=== PATIENT | female | born 1990 | race African-American/Black ===

== ENCOUNTER → 2016-05-29 | Outpatient (CLI) | payer OTHER, BC ==
[2016-02-27 07:10] VITALS: BP 170/93
[~2016-05-29] MED LIST: HYDR-971 PO; PENI500T PO; TRIA15CR2 TP
== END | disposition home or self-care (01) ==
LOC: LAB 07:32
PROVIDERS: ATTEND Obstetrics & Gynecology
DX: Z32.00 Encounter for pregnancy test, result unknown (principal)
CPT/HCPCS: 36415; 84702

== ENCOUNTER 2016-10-28 14:53 | Emergency (ER) | payer OTHER, BC ==
[~2016-10-28] VITALS: Ht 167.6 cm; Wt 136.1 kg
--- NOTE | 2016-10-28 15:59 | PHYS DOC ---
Past Medical History Past Medical History: Other Additional Past Medical Histor: seasonal allergies - pollen Past Surgical History: Alcohol Use: None Drug Use: None Adult General Chief Complaint Chief Complaint: HEADACHE HPI HPI Patient is a 26 year old female presents emergency department stating that she has a headache that starts in her frontal sinuses completely around her head. She states the only other time that she's had a headache that this been similar to this is when she was . Patient states at the end of August she had taken the plan be and has not had a menstrual cycle since then. Patient denies any photophobia, nausea or vomiting. Patient continues to state that she has taken Tylenol ibuprofen, Sudafed and everything [id number] to help with her headache that has not helped at all. Patient states that she drove herself here to the emergency department. She states she does not have anybody that can come pick her up. Review of Systems Review of Systems Constitutional: Denies fever or chills [] Eyes: Denies change in visual acuity, redness, or eye pain [] HENT: Denies nasal congestion or sore throat [] Respiratory: Denies cough or shortness of breath [] Cardiovascular: No additional information not addressed in HPI [] GI: Denies abdominal pain, nausea, vomiting, bloody stools or diarrhea [] : Denies dysuria or hematuria [] Musculoskeletal: Denies back pain or joint pain [] Integument: Denies rash or skin lesions [] Neurologic: headache, denies focal weakness or sensory changes [] Endocrine: Denies polyuria or polydipsia [] Current Medications Current Medications Current Medications Medications (Trade) Dose Ordered Sig/[facility] Start Time Stop Time Status Last Admin Dose Admin Acetaminophen (Tylenol) 1,000 mg 1X ONCE 10/28/16 16:15 10/28/16 16:55 DC Diphenhydramine HCl (Benadryl) 25 mg 1X ONCE 10/28/16 17:30 10/28/16 17:31 10/28/16 17:08 25 MG Ibuprofen (Motrin) 800 mg 1X ONCE 10/28/16 17:30 10/28/16 17:31 10/28/16 17:08 800 MG Metoclopramide HCl (Reglan) 10 mg 1X ONCE 10/28/16 17:30 10/28/16 17:31 10/28/16 17:07 10 MG Pseudoephedrine HCl (Sudafed) 30 mg 1X ONCE 10/28/16 16:15 10/28/16 16:55 DC Allergies Allergies Allergies Coded Allergies Type Severity Reaction Last Updated Verified No Known Drug Allergies 05/07/13 No Physical Exam Physical Exam Constitutional: Well developed, well nourished, no acute distress, non-toxic appearance. [] HENT: Normocephalic, atraumatic, bilateral external ears normal, oropharynx moist, no oral exudates, nose normal. Bilateral tympanic membranes appear to be normal. Patient with frontal sinus tenderness. No maxillary sinus tenderness noted. Bilateral nares appear to be inflamed and red. Patient with no nasal drainage noted patient throat appears to be without redness, exudate or erythema noted. Eyes: PERRLA, EOMI, conjunctiva normal, no discharge. [] Neck: Normal range of motion, no tenderness, supple, no stridor. [] Cardiovascular:Heart rate regular rhythm, no murmur [] Lungs & Thorax: Bilateral breath sounds clear to auscultation [] Skin: Warm, dry, no erythema, no rash. [] Back: No tenderness Extremities: No tenderness, no cyanosis, no clubbing, ROM intact, no edema. [] Neurologic: Alert and oriented X 3, normal motor function, normal sensory function, no focal deficits noted. [] Psychologic: Affect normal, judgement normal, mood normal. [] Current Patient Data Vital Signs Vital Signs Date Time Temp Pulse Resp B/P (MAP) Pulse Ox O2 Delivery O2 Flow Rate FiO2 10/28/16 17:09 102 156/84 (108) 98 Room Air 10/28/16 15:10 97.8 20 97.8 Lab Values Laboratory Tests Test 10/28/16 15:20 POC Urine HCG, Qualitative Hcg negative (Negative) EKG EKG [] Radiology/Procedures Radiology/Procedures [facility] [address] [place] [address] IMAGING REPORT Signed PATIENT: MARIAM RAMOS ACCOUNT: [id number] : 1990 LOCATION: ER AGE: 26 SEX: F EXAM STATUS: REG ER ORD. PHYSICIAN: SHIRLEY BUI APRN REASON: frontal headache that wraps around her head. PROCEDURE: CT HEAD WO CONTRAST CT scan of the head without contrast 10/28/2016 Clinical history: Frontal headaches. Technique: Unenhanced, contiguous, 5 mm axial sections were obtained through the head. One or more of the following individualized dose reduction techniques were utilized for this study: 1. Automated exposure control. 2. Adjustment of the mA and/or kV according to patient size. 3. Use of iterative reconstruction technique. Findings: The ventricles and sulci are within normal limits in size and configuration. No area of abnormal attenuation is involving the brain parenchyma. No extra-axial fluid collection is seen. No skull fracture is noted. Impression: Negative study. DICTATED and SIGNED BY: ILDA TABOR MD DATE: 10/28/161657 CC: SHIRLEY BUI APRN; NO PCP; NON,STAFF ~ [] Course & Med Decision Making Course & Med Decision Making Pertinent Labs and Imaging studies reviewed. (See chart for details) Offered patient a Sudafed here in the emergency department to help with sinus pressure in which patient states I were retaken that and that has not helped with my pain or discomfort. Once again patient has driven herself here to the emergency department so the medication regimen is limited at this time. Patient refused Sudafed and Tylenol here in the emergency department. She has arranged for a ride to come and get her. She was provided with Benadryl and Reglan and Toradol by mouth. CT scans were negative per radiology. Patient will be discharged home in stable condition with you recommendation to use Sudafed and Mucinex DM [id number]. Recommended Tylenol or ibuprofen for pain and discomfort. Patient will be discharged home in stable condition signs and symptoms to return back to the emergency department as been provided. Patient agrees with discharge instructions treatment regimens and follow-up recommendations. [] Dragon Disclaimer Dragon Disclaimer This electronic medical record was generated, in whole or in part, using a voice recognition dictation system. Departure Departure Impression: Primary Impression: Sinus headache Disposition: 01 HOME, SELF-CARE Condition: STABLE Referrals: NO PCP (PCP) Patient Instructions: Sinus Headache, [id number] Additional Instructions: Activity as tolerated. Medication as prescribed: Sudafed, Mucinex DM. Take these medications as directed by reinsurance claims analyst. Drink plenty of fluids. Follow-up with her primary care physician in the next 7-10 days. Return back to emergency department sign symptoms of become worse. SHIRLEY BUI MANUFACTURER'S REPRESENTATIVE Oct 28, 2016 15:59
[2016-10-28] MEDS ORDERED: PSEUDOEPHEDRINE 30 MG TABLET. PO ONE (16:15)
[2016-10-28] MEDS ORDERED: ACETAMINOPHEN 500 MG TABLET PO ONE (16:15)
--- NOTE | 2016-10-28 17:02 | RAD ---
CT scan of the head without contrast 10/28/2016 Clinical history: Frontal headaches. Technique: Unenhanced, contiguous, 5 mm axial sections were obtained through the head. One or more of the following individualized dose reduction techniques were utilized for this study: 1. Automated exposure control. 2. Adjustment of the mA and/or kV according to patient size. 3. Use of iterative reconstruction technique. Findings: The ventricles and sulci are within normal limits in size and configuration. No area of abnormal attenuation is involving the brain parenchyma. No extra-axial fluid collection is seen. No skull fracture is noted. Impression: Negative study.
[2016-10-28 17:09] VITALS: BP 156/84
[2016-10-28] MEDS ORDERED: diphenhydrAMINE HCL 25 MG CAPSULE PO ONE (17:30)
[2016-10-28] MEDS ORDERED: IBUPROFEN 800 MG TABLET. PO ONE (17:30)
[2016-10-28] MEDS ORDERED: METOCLOPRAMIDE 10 MG TABLET. PO ONE (17:30)
== END 2016-10-28 17:27 | disposition home or self-care (01) ==
LOC: ER 14:53
DX: R51 Headache (principal)
CPT/HCPCS: 70450; 81025; 99284; J8597; Q0163

== ENCOUNTER 2016-12-10 07:26 | Emergency (ER) | payer BC, OTHER ==
[~2016-12-10] VITALS: Ht 167.6 cm; Wt 127.0 kg
[2016-12-10 07:40] VITALS: BP 164/92
[2016-12-10] MEDS ORDERED: AMOX1TAB61 PO (07:55)
[2016-12-10] MEDS ORDERED: TRAM50TA PO (07:55)
--- NOTE | 2016-12-10 07:55 | PHYS DOC ---
Past Medical History Past Medical History: Other Additional Past Medical Histor: seasonal allergies - pollen Past Surgical History: Alcohol Use: None Drug Use: None Adult General Chief Complaint Chief Complaint: HEADACHE HPI HPI Patient is a 26 year old female presents to the ED complaining of sinus headache 2 days. Patient states she has a history of similar headaches with same symptoms. Patient had a CT scan on last visit which was negative for any acute injury. States Tylenol relieves her headaches but they come back. Patient states that she had improvement with antibiotics last time. Denies worst headache of life, fever, nausea/vomiting, dizziness, weakness, headache, vision changes, chest pain or shortness of breath. Review of Systems Review of Systems Constitutional: Denies fever or chills [] Eyes: Denies change in visual acuity, redness, or eye pain [] HENT: Complains of nasal congestion. Denies sore throat [] Respiratory: Denies cough or shortness of breath [] Cardiovascular: No additional information not addressed in HPI [] GI: Denies abdominal pain, nausea, vomiting, bloody stools or diarrhea [] : Denies dysuria or hematuria [] Musculoskeletal: Denies back pain or joint pain [] Integument: Denies rash or skin lesions [] Neurologic: Complains of headache. Denies focal weakness or sensory changes [] Endocrine: Denies polyuria or polydipsia [] Allergies Allergies Allergies Coded Allergies Type Severity Reaction Last Updated Verified No Known Drug Allergies 12/10/16 No Physical Exam Physical Exam Constitutional: Well developed, well nourished, no acute distress, non-toxic appearance. [] HENT: MILD FRONTAL SINUS TENDERNESS. Normocephalic, atraumatic, bilateral external ears normal, oropharynx moist, no oral exudates, nose normal. [] Eyes: PERRLA, EOMI, conjunctiva normal, no discharge. [] Neck: Normal range of motion, no tenderness, supple, no stridor. [] Cardiovascular:Heart rate regular rhythm, no murmur [] Lungs & Thorax: Bilateral breath sounds clear to auscultation [] Abdomen: Bowel sounds normal, soft, no tenderness, no masses, no pulsatile masses. [] Skin: Warm, dry, no erythema, no rash. [] Back: No tenderness, no CVA tenderness. [] Extremities: No tenderness, no cyanosis, no clubbing, ROM intact, no edema. [] Neurologic: Alert and oriented X 3, normal motor function, normal sensory function, no focal deficits noted. [] Psychologic: Affect normal, judgement normal, mood normal. [] Current Patient Data Vital Signs Vital Signs Date Time Temp Pulse Resp B/P (MAP) Pulse Ox O2 Delivery O2 Flow Rate FiO2 12/10/16 07:40 98.0 102 20 99 Room Air 98.0 EKG EKG [] Radiology/Procedures Radiology/Procedures [] Impressions: Vitals rechecked. HR: 90. BP 158/94. Sat: 98%. Requesting antibiotics to improve sinus headache. Patient given augmentin and tramadol. Vitals stable, no acute distress. Negative CT on previous visit. States same symptoms as previous visit which got relief with antibiotics. Discussed follow-up with PCP this week. Discussed reasons to return to the ED. Patient understands and agrees with plan. Course & Med Decision Making Course & Med Decision Making Pertinent Labs and Imaging studies reviewed. (See chart for details) [] Dragon Disclaimer Dragon Disclaimer This electronic medical record was generated, in whole or in part, using a voice recognition dictation system. Departure Departure Impression: Primary Impression: Sinus headache Disposition: 01 HOME, SELF-CARE Condition: IMPROVED Referrals: NO PCP (PCP) Patient Instructions: Sinus Headache Scripts Tramadol Hcl (TRAMADOL HCL) 50 Mg Tablet 1 TAB PO PRN Q6HRS, #10 TAB Prov: JUAN WALLACE 12/10/16 Amoxicillin/Potassium Clav (AUGMENTIN 875-125 TABLET) 1 Each Tablet 1 TAB PO BID, #28 TAB Prov: JUAN WALLACE 12/10/16 JUAN WALLACE Dec 10, 2016 07:55
== END 2016-12-10 08:00 | disposition home or self-care (01) ==
LOC: ER 07:26
DX: R51 Headache (principal)
CPT/HCPCS: 99283

== ENCOUNTER 2018-03-01 07:30 | Emergency (ER) | payer OTHER ==
[~2018-03-01] VITALS: Ht 167.6 cm; Wt 136.1 kg
[~2018-03-01 07:30] MED LIST changes: +AMOX1TAB61 PO; +HYDR-3164 PO; -HYDR-971 PO; +TRAM50TA PO
[2018-03-01 07:38] VITALS: BP 175/84
[2018-03-01] MEDS: DEXAMETHASONE SOD PHOS 20 MG/5 ML VIAL. IM ONE (08:49)
--- NOTE | 2018-03-01 08:54 | PHYS DOC ---
Past Medical History Past Medical History: Other Additional Past Medical Histor: seasonal allergies - pollen Past Surgical History: Alcohol Use: None Drug Use: None Adult General Chief Complaint Chief Complaint: SORE THROAT HPI HPI Patient is a 27 year old [f__sex] who presents with [] Review of Systems Review of Systems Constitutional: Denies fever or chills [] Eyes: Denies change in visual acuity, redness, or eye pain [] HENT: Denies nasal congestion or sore throat [] Respiratory: Denies cough or shortness of breath [] Cardiovascular: No additional information not addressed in HPI [] GI: Denies abdominal pain, nausea, vomiting, bloody stools or diarrhea [] : Denies dysuria or hematuria [] Musculoskeletal: Denies back pain or joint pain [] Integument: Denies rash or skin lesions [] Neurologic: Denies headache, focal weakness or sensory changes [] Endocrine: Denies polyuria or polydipsia [] All other systems were reviewed and found to be within normal limits, except as documented in this note. Current Medications Current Medications Current Medications Medications (Trade) Dose Ordered Sig/[facility] Start Time Stop Time Status Last Admin Dose Admin Dexamethasone Sodium Phosphate (Decadron) 10 mg 1X ONCE 03/01/18 08:15 03/01/18 08:16 DC 03/01/18 08:49 10 MG Allergies Allergies Allergies Coded Allergies Type Severity Reaction Last Updated Verified No Known Drug Allergies 12/10/16 No Physical Exam Physical Exam Constitutional: Well developed, well nourished, no acute distress, non-toxic appearance. [] HENT: Normocephalic, atraumatic, bilateral external ears normal, oropharynx moist, no oral exudates, nose normal. [] Eyes: PERRLA, EOMI, conjunctiva normal, no discharge. [] Neck: Normal range of motion, no tenderness, supple, no stridor. [] Cardiovascular:Heart rate regular rhythm, no murmur [] Lungs & Thorax: Bilateral breath sounds clear to auscultation [] Abdomen: Bowel sounds normal, soft, no tenderness, no masses, no pulsatile masses. [] Skin: Warm, dry, no erythema, no rash. [] Back: No tenderness, no CVA tenderness. [] Extremities: No tenderness, no cyanosis, no clubbing, ROM intact, no edema. [] Neurologic: Alert and oriented X 3, normal motor function, normal sensory function, no focal deficits noted. [] Psychologic: Affect normal, judgement normal, mood normal. [] Current Patient Data Vital Signs Vital Signs Date Time Temp Pulse Resp B/P (MAP) Pulse Ox O2 Delivery O2 Flow Rate FiO2 03/01/18 07:38 97.0 90 20 175/84 (114) 100 Room Air 97.0 Lab Values Laboratory Tests Test 03/01/18 08:00 Group A Streptococcus Rapid Negative (NEGATIVE) EKG EKG [] Radiology/Procedures Radiology/Procedures [] Course & Med Decision Making Course & Med Decision Making Pertinent Labs and Imaging studies reviewed. (See chart for details) [] Dragon Disclaimer Dragon Disclaimer This electronic medical record was generated, in whole or in part, using a voice recognition dictation system. Departure Departure Impression: Primary Impression: Pharyngitis Disposition: HOME, SELF-CARE Condition: STABLE Referrals: NO PCP (PCP) Patient Instructions: Viral Pharyngitis Additional Instructions: Use over the counter Tylenol and/or Ibuprofen for pain. Problem Qualifiers Primary Impression: Pharyngitis Pharyngitis/tonsillitis etiology: unspecified etiology Qualified Codes: J02.9 - Acute pharyngitis, unspecified SRUTHI MANUEL DO Mar 01, 2018 08:54
== END 2018-03-01 08:58 | disposition home or self-care (01) ==
LOC: ER 07:30
DX: J02.9 Acute pharyngitis, unspecified (principal)
CPT/HCPCS: 87070; 87880; 96372; 99283; J1100

== ENCOUNTER 2019-04-19 08:29 | Emergency (ER) | payer OTHER ==
[~2019-04-19] VITALS: Ht 170.2 cm; Wt 159.0 kg
[2019-04-19 08:44] VITALS: BP 170/99
[2019-04-19] MEDS ORDERED: IBUPROFEN 400 MG TABLET. PO ONE (08:45)
--- NOTE | 2019-04-19 08:48 | PHYS DOC ---
Past Medical History Past Medical History: Other Additional Past Medical Histor: seasonal allergies - pollen Past Surgical History: Alcohol Use: None Drug Use: None Adult General Chief Complaint Chief Complaint: SORE THROAT HPI HPI Patient is a 28 year old nonsmoker female with history of seasonal allergy who presents with complaint of cough and sore throat. Patient complaining of nonproductive cough that started 1 month ago and became productive with greenish sputum. Patient also complaining of sore throat and hoarseness that started 1 month ago with improvement of hoarseness but states the hoarseness getting worse again. Patient denies fever and chills, shortness of breath, nausea and vomiting, diarrhea and constipation, urinary symptom, . Patient had contacts at work. Patient states she took [id number] NyQuil and DayQuil without improvement of her condition Review of Systems Review of Systems Constitutional: Denies fever or chills [] Eyes: Denies change in visual acuity, redness, or eye pain [] HENT: Denies nasal congestion, reports sore throat [] Respiratory: Reports cough, denies shortness of breath Cardiovascular: No additional information not addressed in HPI [] GI: Denies abdominal pain, nausea, vomiting, bloody stools or diarrhea [] : Denies dysuria or hematuria [] Musculoskeletal: Denies back pain or joint pain [] Integument: Denies rash or skin lesions [] Neurologic: Denies headache, focal weakness or sensory changes [] Endocrine: Denies polyuria or polydipsia [] All other systems were reviewed and found to be within normal limits, except as documented in this note. Current Medications Current Medications Current Medications Medications (Trade) Dose Ordered Sig/[facility] Start Time Stop Time Status Last Admin Dose Admin Ibuprofen (Motrin) 800 mg 1X ONCE 04/19/19 08:45 04/19/19 08:47 DC 04/19/19 08:45 800 MG Allergies Allergies Allergies Coded Allergies Type Severity Reaction Last Updated Verified No Known Drug Allergies 12/10/16 No Physical Exam Physical Exam Constitutional: Well developed, well nourished, mild distress, non-toxic appearance. [] HENT: Normocephalic, atraumatic, bilateral external ears normal, oropharynx moist, pharyngeal erythema, no oral exudates, nose normal. [] Eyes: PERRLA, EOMI, conjunctiva normal, no discharge. [] Neck: Normal range of motion, no tenderness, supple, no stridor. [] Cardiovascular:Heart rate regular rhythm, no murmur [] Lungs & Thorax: Bilateral breath sounds clear to auscultation [] Abdomen: Bowel sounds normal, soft, no tenderness, no masses, no pulsatile masses. [] Skin: Warm, dry, no erythema, no rash. [] Back: No tenderness, no CVA tenderness. [] Extremities: No tenderness, no cyanosis, no clubbing, ROM intact, no edema. [] Neurologic: Alert and oriented X 3, normal motor function, normal sensory function, no focal deficits noted. [] Psychologic: Affect normal, judgement normal, mood normal. [] Current Patient Data Vital Signs Vital Signs Date Time Temp Pulse Resp B/P (MAP) Pulse Ox O2 Delivery O2 Flow Rate FiO2 04/19/19 08:44 97.6 94 16 170/99 (122) 97 Room Air 97.6 EKG EKG [] Radiology/Procedures Radiology/Procedures [][facility] [address] [place], [place] [id number] IMAGING REPORT Signed PATIENT: MARIAM RAOMS ACCOUNT: [id number] : 1990 LOCATION: ER AGE: 28 SEX: F EXAM STATUS: REG ER ORD. PHYSICIAN: GATO MONTENEGRO MD REASON: cough for one month PROCEDURE: CHEST PA & LATERAL EXAM: Chest, 2 views. HISTORY: Cough. COMPARISON: 01/25/2015 FINDINGS: 2 views of the chest are obtained. There is no infiltrate, pleural effusion or pneumothorax. The heart is normal in size. There is stable eventration of the right hemidiaphragm. IMPRESSION: No acute pulmonary finding. Electronically signed by: Natali Mitchell MD (04/19/2019 9:04 AM) [facility] [place] DICTATED and SIGNED BY: NATALI MITCHELL MD DATE: 04/19/19 0904 Course & Med Decision Making Course & Med Decision Making Pertinent Imaging studies reviewed. (See chart for details) discharge: I've spoken with the patient and/or caregivers. I've explained the patient's condition, diagnosis and treatment plan based on information available to me at this time. I've answered the patient's and/or caregivers questions and addressed any concerns. The patient and/or caregivers have a good understanding the patient's diagnosis, condition and treatment plan as can be expected at this point. Vital signs have been stabilized. The patient's condition is stable for discharge from the emergency department. The patient will pursue further outpatient evaluation with her primary care provider or other designated consulting physician as outlined in the discharge instructions. Patient and/or caregivers are agreeable to this plan of care and follow-up instructions have been explained in detail. The patient and/or caregivers have received these instructions in written format and expressed understanding of these discharge instructions. The patient and her caregivers are aware that if any significant change in condition or worsening of symptoms should prompt him to immediately return to this of the closest emergency department. If an emergent department is not readily available I would encourage him to call 911. Dragon Disclaimer Dragon Disclaimer This electronic medical record was generated, in whole or in part, using a voice recognition dictation system. Departure Departure Impression: Primary Impression: Bronchitis Disposition: 01 HOME, SELF-CARE (at 0 [phone]) Condition: STABLE Referrals: NO PCP (PCP) Patient Instructions: Bronchitis, Cough, Adult Additional Instructions: Drink plenty of liquids Follow-up with your primary care physician in 3-5 days Return to ER if not getting better Thank you for visiting [facility]. We appreciate you trusting us with your care. If any additional problems come up don't hesitate to return to visit us. Please follow up with your primary care provider so they can plan additional care if needed and know about the problem that you had. If symptoms worsen come back to the Emergency Department. Any concerning symptoms that start such as chest pain, shortness of air, weakness or numbness on one side of the body, running high fevers or any other concerning symptoms return to the ER. Scripts Benzonatate (TESSALON PERLE) 100 Mg Capsule 1 CAP PO TID for cough, #21 CAP Prov: GATO MONTENEGRO MD 04/19/19 Methylprednisolone (MEDROL) 4 Mg Tab.ds.pk 1 PKG PO UD for inflammation, #1 PKG Prov: GATO MONTENEGRO MD 04/19/19 Amoxicillin/Potassium Clav (AUGMENTIN 875-125 TABLET) 1 Each Tablet 1 TAB PO Q12HR, #20 TAB Prov: GATO MONTENEGRO MD 04/19/19 GATO MONTENEGRO MD Apr 19, 2019 08:48
--- NOTE | 2019-04-19 09:08 | RAD ---
EXAM: Chest, 2 views. HISTORY: Cough. COMPARISON: 01/25/2015 FINDINGS: 2 views of the chest are obtained. There is no infiltrate, pleural effusion or pneumothorax. The heart is normal in size. There is stable eventration of the right hemidiaphragm. IMPRESSION: No acute pulmonary finding. Electronically signed by: Natali Mitchell MD (04/19/2019 9:04 AM) [facility]
[2019-04-19] MEDS ORDERED: METH4TAB2 PO (09:29)
[2019-04-19] MEDS ORDERED: AMOX1TAB61 PO (09:29)
[2019-04-19] MEDS ORDERED: BENZ100C PO (09:29)
== END 2019-04-19 09:36 | disposition home or self-care (01) ==
LOC: ER 08:29
DX: J40 Bronchitis, not specified as acute or chronic (principal); R49.0 Dysphonia; R05 Cough; J30.2 Other seasonal allergic rhinitis; Z98.890 Other specified postprocedural states
CPT/HCPCS: 71046; 87070; 87880; 99285